=== PATIENT | female | born 1985 | race Two or more races ===

== ENCOUNTER 2018-07-25 09:22 | Emergency (ER) | payer BC ==
[~2018-07-25] VITALS: Ht 167.6 cm; Wt 72.6 kg
[2018-07-25 09:29] VITALS: BP 111/61
[2018-07-25] MEDS ORDERED: IBUPROFEN 400 MG TABLET. PO ONE (10:00)
[2018-07-25 10:41] LABS: INFLUENZA A PATIENT NEGATIVE (NEGATIVE); INFLUENZA B PATIENT NEGATIVE (NEGATIVE)
[2018-07-25] MEDS ORDERED: OSEL75CA PO (10:54)
--- NOTE | 2018-07-25 10:55 | PHYS DOC ---
Past Medical History Past Medical History: Kidney Stone Past Surgical History: Other Additional Past Surgical Histo: kidneys stone removal Alcohol Use: None Drug Use: None Adult General Chief Complaint Chief Complaint: FLU SYMPTOM HPI HPI Patient is a 33 year old female who presents with flu symptoms that started yesterday. She has 2 other family members that live in the house with similar symptoms. She states that she has a headache and body aches. She has a cough and has felt febrile at home. She took ibuprofen yesterday. Review of Systems Review of Systems Constitutional: See history of present illness Eyes: Denies change in visual acuity, redness, or eye pain [] HENT: Denies nasal congestion or sore throat [] Respiratory: See history of present illness Cardiovascular: No additional information not addressed in HPI [] GI: Denies abdominal pain, nausea, vomiting, bloody stools or diarrhea [] : Denies dysuria or hematuria [] Musculoskeletal: See history of present illness Integument: Denies rash or skin lesions [] Neurologic: Denies headache, focal weakness or sensory changes [] Endocrine: Denies polyuria or polydipsia [] All other systems were reviewed and found to be within normal limits, except as documented in this note. Current Medications Current Medications Current Medications Medications (Trade) Dose Ordered Sig/Zoila Start Time Stop Time Status Last Admin Dose Admin Ibuprofen (Motrin) 400 mg 1X ONCE 07/25/18 10:00 07/25/18 10:01 DC 07/25/18 10:14 400 MG Allergies Allergies Allergies Coded Allergies Type Severity Reaction Last Updated Verified No Known Drug Allergies 07/25/18 No Physical Exam Physical Exam Constitutional: Well developed, well nourished, no acute distress, non-toxic appearance. [] HENT: Normocephalic, atraumatic, bilateral tympanic membranes normal, oropharynx moist, no oral exudates, nose normal. [] Eyes: PERRLA, EOMI, conjunctiva normal, no discharge. [] Neck: Normal range of motion, no tenderness, supple, no stridor. [] Cardiovascular:Heart rate regular rhythm, no murmur [] Lungs & Thorax: Bilateral breath sounds clear to auscultation [] Abdomen: Bowel sounds normal, soft, no tenderness, no masses, no pulsatile masses. [] Skin: Warm, dry, no erythema, no rash. [] Back: No tenderness, no CVA tenderness. [] Extremities: No tenderness, no cyanosis, no clubbing, ROM intact, no edema. [] Neurologic: Alert and oriented X 3, normal motor function, normal sensory function, no focal deficits noted. [] Psychologic: Affect normal, judgement normal, mood normal. [] Current Patient Data Vital Signs Vital Signs Date Time Temp Pulse Resp B/P (MAP) Pulse Ox O2 Delivery O2 Flow Rate FiO2 07/25/18 09:29 98.8 96 16 111/61 (78) 94 Room Air 98.8 Lab Values Laboratory Tests Test 07/25/18 09:43 07/25/18 10:04 Influenza Type A Antigen Negative (NEGATIVE) Influenza Type B Antigen Negative (NEGATIVE) Group A Streptococcus Rapid Negative (NEGATIVE) EKG EKG [] Radiology/Procedures Radiology/Procedures [] Course & Med Decision Making Course & Med Decision Making Pertinent Labs and Imaging studies reviewed. (See chart for details) []The patient's influenza swab came back as negative but the other 2 family member swabs were positive. I do believe that clinically she is positive for influenza. Dragon Disclaimer Dragon Disclaimer This electronic medical record was generated, in whole or in part, using a voice recognition dictation system. Departure Departure Impression: Primary Impression: Influenza A (H1N1) Disposition: 01 HOME, SELF-CARE Condition: STABLE Referrals: UNKNOWN PCP NAME (PCP) Patient Instructions: Influenza A (H1N1) Additional Instructions: Take the medication as directed. Use ibuprofen or Tylenol to control your fever. Increase fluids and rest. Follow-up with your primary care provider in 4 days if not improving or return to the emergency department if worsening. Scripts Oseltamivir Phosphate (TAMIFLU) 75 Mg Capsule 1 CAP PO BID for influenza, #10 CAP Prov: LIYAH WONG APRN 07/25/18 LIYAH WONG APRN Jul 25, 2018 10:55
== END 2018-07-25 11:18 | disposition home or self-care (01) ==
LOC: ER 09:22
DX: J10.1 Influenza due to other identified influenza virus with other respiratory manifestations (principal)
CPT/HCPCS: 87070; 87804; 87880; 99283

== ENCOUNTER 2020-04-06 18:03 | Emergency (ER) | payer SELFPAY ==
[~2020-04-06] VITALS: Ht 157.5 cm; Wt 127.2 kg
[~2020-04-06 18:03] MED LIST: OSEL75CA PO
[2020-04-06 18:31] LABS: BILIRUBIN,URINE NEGATIVE (NEG); CLARITY,URINE CLOUDY; COLOR,URINE YELLOW; NITRITE,URINE POSITIVE (NEG); PH,URINE 7.5 (<5.0-8.0); PROTEIN,URINE NEGATIVE (NEG-TRACE)
[2020-04-06 18:48] LABS: BACTERIA,URINE MANY /HPF (0-FEW); WBC,URINE TNTC /HPF (0-4)
--- NOTE | 2020-04-06 19:43 | PHYS DOC ---
Past Medical History Past Medical History: Kidney Stone Past Surgical History: Other Additional Past Surgical Histo: kidneys stone removal Smoking Status: Never Smoker Alcohol Use: None Drug Use: None General Adult EDM: Chief Complaint: ABDOMINAL PAIN HPI: HPI: Patient is a 34 year old female with a past medical history kidney stones presents with a chief complaint of left flank pain and left abdominal pain. On set of discomfort started today. States she has associated nausea and vomiting as well as difficulty urinating. Patient states her last menstrual period was in January. Review of Systems: Review of Systems: Constitutional: Denies fever or chills. [] Eyes: Denies change in visual acuity. [] HENT: Denies nasal congestion or sore throat. [] Respiratory: Denies cough or shortness of breath. [] Cardiovascular: Denies chest pain or edema. [] GI: Positive abdominal pain positive nausea positive vomiting : Denies dysuria. [] Positive flank pain Musculoskeletal: Denies back pain or joint pain. [] Integument: Denies rash. [] Neurologic: Denies headache, focal weakness or sensory changes. [] Endocrine: Denies polyuria or polydipsia. [] Lymphatic: Denies swollen glands. [] Psychiatric: Denies depression or anxiety. [] Heart Score: Risk Factors: Risk Factors: DM, Current or recent (<one month) smoker, HTN, HLP, family history of CAD, obesity. Risk Scores: Score 0 - 3: 2.5% MACE over next 6 weeks - Discharge Home Score 4 - 6: 20.3% MACE over next 6 weeks - Admit for Clinical Observation Score 7 - 10: 72.7% MACE over next 6 weeks - Early Invasive Strategies Allergies: Allergies: Allergies Coded Allergies Type Severity Reaction Last Updated Verified No Known Drug Allergies 07/25/18 No Physical Exam: PE: Constitutional: Well developed, well nourished, no acute distress, non-toxic appearance. [] HENT: Normocephalic, atraumatic, bilateral external ears normal, oropharynx moist, no oral exudates, nose normal. [] Eyes: PERRLA, EOMI, conjunctiva normal, no discharge. [] Neck: Normal range of motion, no tenderness, supple, no stridor. [] Cardiovascular:Heart rate regular rhythm, no murmur [] Lungs & Thorax: Bilateral breath sounds clear to auscultation [] Abdomen: Bowel sounds normal, soft, no tenderness, no masses, no pulsatile masses. [] Skin: Warm, dry, no erythema, no rash. [] Back: No tenderness, no CVA tenderness. [] Extremities: No tenderness, no cyanosis, no clubbing, ROM intact, no edema. [] Neurologic: Alert and oriented X 3, normal motor function, normal sensory function, no focal deficits noted. [] Psychologic: Affect normal, judgement normal, mood normal. [] Current Patient Data: Labs: Laboratory Tests Test 04/06/20 18:20 04/06/20 18:23 Urine Collection Type Void Urine Color Yellow Urine Clarity Cloudy Urine pH 7.5 (<5.0-8.0) Urine Specific [place] 1.020 (1.000-1.030) Urine Protein Negative mg/dL (NEG-TRACE) Urine Glucose (UA) Negative mg/dL (NEG) Urine Ketones (Stick) Negative mg/dL (NEG) Urine Blood Moderate (NEG) Urine Nitrite Positive (NEG) Urine Bilirubin Negative (NEG) Urine Urobilinogen Dipstick 1.0 mg/dL (0.2 mg/dL) Urine Leukocyte Esterase Large (NEG) Urine RBC 11-20 /HPF (0-2) Urine WBC Tntc /HPF (0-4) Urine Squamous Epithelial Cells Mod /LPF Urine Bacteria Many /HPF (0-FEW) Urine Mucus Marked /LPF POC Urine HCG, Qualitative Hcg negative (Negative) EKG: EKG: [] Radiology/Procedures: Radiology/Procedures: [] Impression: IMPRESSION: 1. Cystic lesion at the left ovary measuring up to 5 cm may represent enlarged ovary. Ultrasound to better evaluate. 2. Several nonobstructing left renal calculi. No ureteral calculi or evidence for obstructive uropathy. 3. Diffuse hepatic steatosis. Course & Med Decision Making: Course & Med Decision Making Pertinent Labs and Imaging studies reviewed. (See chart for details) [] Patient was evaluated for chief complaint. Work-up consisted of laboratory analysis and radiologic imaging. Results reviewed. Patient noted to have ovarian cyst on the left. Her urine is consistent with a urinary tract infection. Patient be discharged home with Pyridium and CIPRO First does of cipro in the ER.. Eren Disclaimer: Eren Disclaimer: This electronic medical record was generated, in whole or in part, using a voice recognition dictation system. Departure Departure Impression: Primary Impression: Urinary tract infection Additional Impression: Flank pain Disposition: 01 DC HOME SELF CARE/HOMELESS Referrals: NO PCP (PCP) Patient Instructions: Flank Pain, Urinary Tract Infection Scripts Ciprofloxacin (CIPRO) 500 Mg/5 Ml [place].[email or web address] 500 MG PO BID for 7 Days, #14 SUSPENSION Prov: CHANO MONTILLA DO 04/06/20 Phenazopyridine Hcl (PYRIDIUM) 200 Mg Tablet 1 TAB PO TID for urinary discomfort for 3 Days, #9 TAB 0 Refills Prov: CHANO MONTILLA DO 04/06/20 CHANO MONTILLA DO Apr 06, 2020 19:43
[2020-04-06 19:50] LABS: BASO # 0.1 x10^3/uL (0.0-0.2); BASO % 1 % (0-3); EOS # 0.1 x10^3/uL (0.0-0.7); EOS % 1 % (0-3); HEMATOCRIT 37.8 % (36.0-47.0); HEMOGLOBIN 12.7 g/dL (12.0-15.5); LYMPH # 3.3 x10^3/uL (1.0-4.8); LYMPH % 43 % (24-48); MEAN CORPUSCULAR HEMOGLOBIN 31 pg (25-35); MEAN CORPUSCULAR HGB CONC 34 g/dL (31-37); MEAN CORPUSCULAR VOLUME 91 fL (79-100); MONO # 0.6 x10^3/uL (0.0-1.1); MONO % 8 % (0-9); NEUT # 3.6 x10^3/uL (1.8-7.7); NEUT % 47 % (31-73); PLATELET COUNT 228 x10^3/uL (140-400); RED BLOOD COUNT 4.15 x10^6/uL (3.50-5.40); RED CELL DISTRIBUTION WIDTH 13.8 % (11.5-14.5); WHITE BLOOD COUNT 7.7 x10^3/uL (4.0-11.0)
[2020-04-06 19:59] LABS: CALCIUM 8.9 mg/dL (8.5-10.1); CREATININE 0.8 mg/dL (0.6-1.0); GFR 82.1; POTASSIUM 3.5 mmol/L (3.5-5.1)
[2020-04-06 20:05] LABS: ALBUMIN 3.8 g/dL (3.4-5.0); TOTAL BILIRUBIN 0.3 mg/dL (0.2-1.0); TOTAL PROTEIN 7.8 g/dL (6.4-8.2)
--- NOTE | 2020-04-06 20:47 | RAD ---
Exam: CT of abdomen and pelvis without contrast INDICATION: Left flank pain TECHNIQUE: Sequential axial images through the abdomen and pelvis obtained without IV contrast. Sagittal and coronal reformatted images were reconstructed from the axial data and reviewed. Comparisons: None FINDINGS: Heart size is normal. No pericardial effusion. Visualized lung bases are clear. No pleural effusion. Evaluation of solid organs is limited secondary to noncontrast technique. Diffuse hepatic steatosis. Spleen, pancreas, gallbladder and adrenals are unremarkable. No perinephric inflammation or hydronephrosis. No ureteral calculi are identified. Several large nonobstructing left renal calculi are seen. Bladder is partially distended and not well evaluated. Uterus is not enlarged. Cystic lesion at the left adnexa, likely enlarged left ovary measuring up to 5 cm. Large and small bowel are unremarkable. No free abdominal air or fluid. No obstruction. Appendix is normal. Abdominal aorta has a normal course and caliber. No enlarged intra-abdominal lymph nodes are identified. No suspicious osseous lesions or acute fractures. IMPRESSION: 1. Cystic lesion at the left ovary measuring up to 5 cm may represent enlarged ovary. Ultrasound to better evaluate. 2. Several nonobstructing left renal calculi. No ureteral calculi or evidence for obstructive uropathy. 3. Diffuse hepatic steatosis. Exposure: One or more of the following in the visualized dose reduction techniques were utilized for this examination: 1. Automated exposure control 2. Adjustment of the MA and/or KV according to patient size 3. Use of iterative of reconstructive technique Electronically signed by: Emilia Silva MD (04/06/2020 8:44 PM) [facility]
[2020-04-06 21:02] VITALS: BP 117/76
[2020-04-06] MEDS ORDERED: PHEN-318 PO (21:11)
[2020-04-06] MEDS ORDERED: CIPR500S2 PO (21:11)
[2020-04-06] MEDS ORDERED: CIPROFLOXACIN HCL 250 MG TABLET. ONE (21:14)
[2020-04-06] MEDS ORDERED: CIPROFLOXACIN HCL 250 MG TABLET. PO ONE (21:45)
== END 2020-04-06 21:32 | disposition home or self-care (01) ==
LOC: ER 18:03
DX: N39.0 Urinary tract infection, site not specified (principal); R10.9 Unspecified abdominal pain; R11.2 Nausea with vomiting, unspecified; Z98.890 Other specified postprocedural states; Z87.442 Personal history of urinary calculi
CPT/HCPCS: 36415; 74176; 80053; 81001; 81025; 85025; 87086; 99284